=== PATIENT | female | born 1995 ===

== ENCOUNTER 2019-01-10 15:48 | Emergency (ER) | END 2019-01-10 20:30 | disposition left against medical advice (07) | LOC: ER 15:48 | DX: Z53.21 Procedure and treatment not carried out due to patient leaving prior to being seen by health care provider (principal); R10.9 Unspecified abdominal pain ==

== ENCOUNTER 2019-05-23 22:01 | Emergency (ER) | END 2019-05-23 23:58 | disposition left against medical advice (07) | LOC: ER 22:01 | DX: Z53.21 Procedure and treatment not carried out due to patient leaving prior to being seen by health care provider (principal); R00.2 Palpitations; R53.83 Other fatigue ==